=== PATIENT | male | born 1965 | race American Indian/Alaskan Native ===

== ENCOUNTER 2016-11-09 08:25 | Day surgery (SDC) | payer MEDICARE ==
[~2016-11-09] VITALS: Ht 182.9 cm; Wt 100.0 kg
[~2016-11-09 08:25] MED LIST: BUPIVACAINE/PF 0.5% ONE; HEPARIN 1,000 UNITS/ML, 10ML ONE; PROTAMINE SULFATE 10 MG/ML, 5ML ONE
[2016-11-09] MEDS ORDERED: SODIUM CHLORIDE 0.9% 1,000 ML IV SCH (09:15)
[2016-11-09] MEDS ORDERED: ASPI-496 PO (09:19)
[2016-11-09] MEDS ORDERED: ASCO10004 PO (09:19)
[2016-11-09] MEDS ORDERED: SERT25TA PO (09:19)
[2016-11-09] MEDS ORDERED: FURO-92 PO (09:19)
[2016-11-09] MEDS ORDERED: FERR325T10 PO (09:19)
[2016-11-09] MEDS ORDERED: LISI-167 PO (09:19)
[2016-11-09] MEDS ORDERED: SEVE800T8 PO (09:19)
[2016-11-09] MEDS ORDERED: ATOR10TA9 PO (09:19)
[2016-11-09] MEDS ORDERED: ERGO500017 PO (09:19)
[2016-11-09 09:20] VITALS: BP 139/73
[2016-11-09] MEDS ORDERED: FENTANYL PF 250 MCG/5ML ONE ×2 (11:33)
[2016-11-09] MEDS ORDERED: PROPOFOL 10 MG/ML, 20ML ONE (11:34)
[2016-11-09] MEDS ORDERED: CEFAZOLIN 1,000 MG ONE (11:34)
[2016-11-09] MEDS ORDERED: OXYcodone 5 MG/5 ML ORAL.SOL UDC PO PRN (12:30)
[2016-11-09] MEDS ORDERED: FENTANYL PF 100 MCG/2ML IV PRN (12:30)
[2016-11-09] MEDS ORDERED: HYDROcodone/APAP 5/325 TABLET PO ONE (15:00)
[2016-11-09] MEDS ORDERED: HYDROcodone/APAP 5/325 TABLET ONE (15:01)
== END 2016-11-09 15:10 | disposition home or self-care (01) ==
LOC: OUT 08:25
PROVIDERS: ATTEND Surgery Vascular Surgery
DX: T82.590A Other mechanical complication of surgically created arteriovenous fistula, initial encounter (principal); T85.691A Other mechanical complication of intraperitoneal dialysis catheter, initial encounter; E11.22 Type 2 diabetes mellitus with diabetic chronic kidney disease; N18.6 End stage renal disease; Z99.2 Dependence on renal dialysis; I25.2 Old myocardial infarction; I25.10 Atherosclerotic heart disease of native coronary artery without angina pectoris; Y83.2 Surgical operation with anastomosis, bypass or graft as the cause of abnormal reaction of the patient, or of later complication, without mention of misadventure at the time of the procedure
CPT/HCPCS: 36415; 36832; 49422; 80047; 82962; J0690; J1644; J2704; J3010; J3490; J7030; J2720